=== PATIENT | female | born 1930 | race Caucasian/White ===

== ENCOUNTER 2017-08-07 15:10 | Inpatient (IN) | payer MEDICARE, OTHER ==
[~2017-08-07] VITALS: Ht 137.2 cm; Wt 54.9 kg
[2017-08-07 15:57] LABS: BASOPHILS % (AUTO) 0.7 % (0.0-2.0); EOSINOPHILS # (AUTO) 0.1 K/uL (0.0-0.7); EOSINOPHILS % (AUTO) 2.4 % (0.0-7.0); HEMATOCRIT 36.7 % (31.2-41.9); HEMOGLOBIN 12.4 g/dL (10.9-14.3); LYMPHOCYTES # (AUTO) 1.7 K/uL (20.0-40.0); LYMPHOCYTES % (AUTO) 28.7 % (20.5-51.5); MEAN CORPUSCULAR HEMOGLOBIN 29.8 uug (24.7-32.8); MEAN CORPUSCULAR HGB CONC 34 g/dL (32.3-35.6); MONOCYTES # (AUTO) 0.5 K/uL (2.0-10.0); MONOCYTES % (AUTO) 8.7 % (0.0-11.0); NEUTROPHILS # (AUTO) 3.5 K/uL (1.8-8.9); NEUTROPHILS % (AUTO) 59.5 % (38.5-71.5); PLATELET COUNT (AUTO) 242 K/uL (179-408); RED BLOOD CELL COUNT(AUTO) 4.17 MIL/uL (3.63-4.92); WHITE BLOOD COUNT (AUTO) 5.8 K/uL (3.8-11.8)
[2017-08-07 16:00] LABS: *BILIRUBIN,URIN NEGATIVE (NEGATIVE); *BLOOD, URINE NEGATIVE (NEGATIVE); *COLOR,URINE YELLOW (YELLOW); *KETONES,URINE NEGATIVE (NEGATIVE); *PROTEIN,URINE NEGATIVE (NEGATIVE); *UROBILINOGEN,URINE 0.2 E.U./dl (NORMAL); LEUKOCYTE ESTERASE ,URINE 1+ (NEGATIVE); NITRITE, URINE NEGATIVE (NEGATIVE); PH,URINE 7.5 (5.0-8.0); UGLUCOSE NEGATIVE (NEGATIVE)
[2017-08-07 16:06] LABS: CARBON DIOXIDE 30 mmol/L (21-32); CHLORIDE 104 mmol/L (98-107); CREATININE 0.8 mg/dL (0.6-1.3); GLUCOSE 99 mg/dL (74-106); POTASSIUM 3.8 mmol/L (3.5-5.1); UREA NITROGEN, BLOOD 15 mg/dL (7-18)
[2017-08-07 16:12] LABS: *CLARITY,URINE HAZY (CLEAR)
[2017-08-07 16:13] LABS: ALANINE AMINOTRANSFERASE 22 U/L (14-59); ALKALINE PHOSPHATASE 108 U/L (50-136); ASPARTATE AMINOTRANSFERASE 23 U/L (15-37); BILIRUBIN,DIRECT < 0.1 mg/dL (0.0-0.2); BILIRUBIN,TOTAL 0.2 mg/dL (0.2-1.0); ETHANOL < 3 MG/DL (0-0); TOTAL PROTEIN, SERUM 7.3 g/dL (6.4-8.2)
[2017-08-07 16:14] LABS: BACTERIA,URINE MODERATE /HPF (NONE SEEN); SQUAMOUS EPITHELIAL CELL,UR MODERATE /HPF (NONE SEEN)
[2017-08-07 16:15] LABS: *AMPHETAMINE, URINE NEGATIVE (NEGATIVE); *BARBITURATE, URINE NEGATIVE (NEGATIVE); *CANNABINOID, URINE NEGATIVE (NEGATIVE); *COCCAINE, URINE NEGATIVE (NEGATIVE); *OPIATE, URINE NEGATIVE (NEGATIVE); *PHENCYCLIDINE SCREEN,URINE NEGATIVE (NEGATIVE)
[2017-08-07 16:16] LABS: ACETAMINOPHEN < 2.0 ug/mL (10-30)
[2017-08-07] MEDS ORDERED: LEVE500S9 PO (16:29)
[2017-08-07] MEDS ORDERED: BISA10SU12 RC (16:29)
[2017-08-07] MEDS ORDERED: POTA-88 PO (16:29)
[2017-08-07] MEDS ORDERED: ATOR40TA PO (16:29)
[2017-08-07] MEDS ORDERED: ALBU2.5V13 IH (16:29)
[2017-08-07] MEDS ORDERED: NUTR113P PO (16:29)
[2017-08-07] MEDS ORDERED: MAGN400O6 PO (16:29)
[2017-08-07] MEDS ORDERED: ACET325T53 PO (16:29)
[2017-08-07] MEDS ORDERED: MIRT15TA PO (16:29)
[2017-08-07] MEDS ORDERED: HYDR-4077 PO (16:29)
[2017-08-07] MEDS ORDERED: ASPI-612 PO (16:29)
[2017-08-07] MEDS ORDERED: LACO10SO PO (16:29)
[2017-08-07] MEDS ORDERED: ONDA4TAB11 PO (16:29)
[2017-08-07] MEDS ORDERED: SENN-167 PO (16:29)
[2017-08-07] MEDS ORDERED: MELA3TAB PO (16:29)
[2017-08-07] MEDS ORDERED: CEPHALEXIN MONOHYDRATE 500 MG CAPSULE PO ONE (16:30)
[2017-08-07] MEDS ORDERED: CEPHALEXIN MONOHYDRATE 500 MG CAPSULE ONE (17:14)
[2017-08-07] MEDS ORDERED: OLANZAPINE 5 MG TABLET PO ONE (17:30)
[2017-08-07] MEDS ORDERED: OLANZAPINE 10 MG VIAL IM ONE (17:39)
[2017-08-07] MEDS ORDERED: MAGNESIUM HYDROXIDE 30 ML LIQUID UDC PO PRN (19:45)
[2017-08-07] MEDS ORDERED: LORAZEPAM 0.5 MG TABLET PO PRN (20:00)
[2017-08-08] MEDS ORDERED: Z GUARD REMEDY PASTE 57 GM TUBE TOP PRN (02:15)
[2017-08-08] MEDS: ACETAMINOPHEN 325 MG TABLET PO PRN ×3 (05:24→23:46)
[2017-08-08 06:41] VITALS: BP 125/79
[2017-08-08 07:30] VITALS: BP 135/99
[2017-08-08] MEDS: NYSTATIN CREAM 30 GM TUBE TOP SCH ×2 (09:00→20:07)
[2017-08-08] MEDS: NICOTINE 7 MG/24HR PATCH TD SCH (09:08)
[2017-08-08] MEDS: QUETIAPINE FUMARATE 25 MG TABLET PO SCH ×2 (11:28→17:49)
[2017-08-08] MEDS: DIVALPROEX SPRINKLE 125 MG CAP.SPRINK PO SCH ×3 (11:28→17:49)
[2017-08-08 15:19] VITALS: BP 126/48
[2017-08-08] MEDS ORDERED: BISACODYL 10 MG SUPP.RECT RC PRN (15:45)
[2017-08-08] MEDS ORDERED: NUTRITIONAL SUPPLEMENT 113 GM PO SCH (17:00)
[2017-08-08] MEDS ORDERED: LACOSAMIDE 150 MG/15 ML UDC PO SCH (17:00)
[2017-08-08] MEDS: SULFAMETH/TRIMETH 800/160 MG TABLET PO SCH (20:06)
[2017-08-08] MEDS: ATORVASTATIN 40 MG TABLET PO SCH (20:06)
[2017-08-08] MEDS: MIRTAZAPINE 15 MG TABLET PO SCH (20:06)
[2017-08-08] MEDS: MELATONIN 3 MG TABLET PO SCH (20:07)
[2017-08-08] MEDS: LEVETIRACETAM 500 MG TABLET PO SCH (20:07)
[2017-08-08 20:53] VITALS: BP 128/68
[2017-08-08] MEDS: hydrALAZINE HCL 50 MG TABLET PO SCH (21:38)
[2017-08-09] MEDS: TEMAZEPAM 7.5 MG CAPSULE PO PRN ×2 (00:19→22:59)
[2017-08-09] MEDS: hydrALAZINE HCL 50 MG TABLET PO SCH ×3 (06:57→22:00)
[2017-08-09 07:30] VITALS: BP 136/63
[2017-08-09] MEDS: LACTOSE-FREE FOOD 237 ML LIQUID PO SCH (08:00)
[2017-08-09] MEDS: LEVETIRACETAM 500 MG TABLET PO SCH ×2 (08:40→21:00)
[2017-08-09] MEDS: DIVALPROEX SPRINKLE 125 MG CAP.SPRINK PO SCH ×3 (08:40→16:52)
[2017-08-09] MEDS: SULFAMETH/TRIMETH 800/160 MG TABLET PO SCH ×2 (08:40→21:00)
[2017-08-09] MEDS: QUETIAPINE FUMARATE 25 MG TABLET PO SCH ×2 (08:41→16:52)
[2017-08-09] MEDS: NICOTINE 7 MG/24HR PATCH TD SCH (08:41)
[2017-08-09] MEDS: SENNOSIDES 1 TABLET PO SCH (08:41)
[2017-08-09] MEDS: LACOSAMIDE 50 MG TABLET PO SCH (08:41)
[2017-08-09] MEDS: ASPIRIN 325 MG TABLET PO SCH (08:41)
[2017-08-09] MEDS: NYSTATIN CREAM 30 GM TUBE TOP SCH ×2 (08:42→21:01)
[2017-08-09] MEDS: POTASSIUM CHLORIDE 20 MEQ POWDER PACKET PO SCH (08:52)
[2017-08-09 15:29] VITALS: BP 107/88
[2017-08-09 20:33] VITALS: BP 116/72
[2017-08-09] MEDS: MIRTAZAPINE 15 MG TABLET PO SCH (21:00)
[2017-08-09] MEDS: ATORVASTATIN 40 MG TABLET PO SCH (21:00)
[2017-08-09] MEDS: MELATONIN 3 MG TABLET PO SCH (21:02)
[2017-08-10] MEDS: hydrALAZINE HCL 50 MG TABLET PO SCH ×3 (06:28→21:00)
[2017-08-10 07:30] VITALS: BP 124/55
[2017-08-10] MEDS: LACTOSE-FREE FOOD 237 ML LIQUID PO SCH ×3 (08:00→16:35)
[2017-08-10] MEDS: ASPIRIN 325 MG TABLET PO SCH (08:06)
[2017-08-10] MEDS: SENNOSIDES 1 TABLET PO SCH (08:06)
[2017-08-10] MEDS: DIVALPROEX SPRINKLE 125 MG CAP.SPRINK PO SCH ×3 (08:06→16:35)
[2017-08-10] MEDS: SULFAMETH/TRIMETH 800/160 MG TABLET PO SCH ×2 (08:06→21:00)
[2017-08-10] MEDS: LEVETIRACETAM 500 MG TABLET PO SCH ×2 (08:06→21:00)
[2017-08-10] MEDS: QUETIAPINE FUMARATE 25 MG TABLET PO SCH ×2 (08:06→16:35)
[2017-08-10] MEDS: NICOTINE 7 MG/24HR PATCH TD SCH (08:06)
[2017-08-10] MEDS: LACOSAMIDE 50 MG TABLET PO SCH (08:06)
[2017-08-10] MEDS: POTASSIUM CHLORIDE 20 MEQ POWDER PACKET PO SCH (08:06)
[2017-08-10] MEDS: NYSTATIN CREAM 30 GM TUBE TOP SCH ×2 (08:07→21:00)
[2017-08-10 15:18] VITALS: BP 112/63
[2017-08-10 20:39] VITALS: BP 146/67
[2017-08-10] MEDS: MIRTAZAPINE 15 MG TABLET PO SCH (21:00)
[2017-08-10] MEDS: ATORVASTATIN 40 MG TABLET PO SCH (21:00)
[2017-08-10] MEDS: MELATONIN 3 MG TABLET PO SCH (21:00)
[2017-08-11] MEDS: hydrALAZINE HCL 50 MG TABLET PO SCH ×4 (05:53→21:48)
[2017-08-11 07:30] VITALS: BP 122/58
[2017-08-11] MEDS: LACOSAMIDE 50 MG TABLET PO SCH (09:48)
[2017-08-11] MEDS: NICOTINE 7 MG/24HR PATCH TD SCH (09:50)
[2017-08-11] MEDS: SULFAMETH/TRIMETH 800/160 MG TABLET PO SCH ×2 (09:50→20:22)
[2017-08-11] MEDS: LEVETIRACETAM 500 MG TABLET PO SCH ×2 (09:50→20:22)
[2017-08-11] MEDS: SENNOSIDES 1 TABLET PO SCH (09:50)
[2017-08-11] MEDS: QUETIAPINE FUMARATE 25 MG TABLET PO SCH ×2 (09:50→17:59)
[2017-08-11] MEDS: DIVALPROEX SPRINKLE 125 MG CAP.SPRINK PO SCH ×3 (09:50→17:58)
[2017-08-11] MEDS: POTASSIUM CHLORIDE 20 MEQ POWDER PACKET PO SCH (09:51)
[2017-08-11] MEDS: ASPIRIN 325 MG TABLET PO SCH (09:51)
[2017-08-11] MEDS: NYSTATIN CREAM 30 GM TUBE TOP SCH ×2 (09:52→20:36)
[2017-08-11] MEDS: LACTOSE-FREE FOOD 237 ML LIQUID PO SCH ×2 (09:54→17:00)
[2017-08-11 16:40] VITALS: BP 123/86
[2017-08-11 20:00] VITALS: BP 105/57
[2017-08-11] MEDS: ATORVASTATIN 40 MG TABLET PO SCH (20:22)
[2017-08-11] MEDS: MIRTAZAPINE 15 MG TABLET PO SCH (20:22)
[2017-08-11] MEDS: MELATONIN 3 MG TABLET PO SCH (20:22)
[2017-08-12] MEDS: hydrALAZINE HCL 50 MG TABLET PO SCH ×3 (06:13→22:00)
[2017-08-12 08:00] VITALS: BP 130/44
[2017-08-12] MEDS: LACTOSE-FREE FOOD 237 ML LIQUID PO SCH ×2 (08:00→17:42)
[2017-08-12 08:40] LABS: BASOPHILS % (AUTO) 0.6 % (0.0-2.0); EOSINOPHILS # (AUTO) 0.1 K/uL (0.0-0.7); EOSINOPHILS % (AUTO) 2.7 % (0.0-7.0); HEMATOCRIT 36.9 % (31.2-41.9); HEMOGLOBIN 12.4 g/dL (10.9-14.3); MEAN CORPUSCULAR HEMOGLOBIN 29.6 uug (24.7-32.8); MEAN CORPUSCULAR HGB CONC 34 g/dL (32.3-35.6); MEAN CORPUSCULAR VOLUME 88.2 fL (75.5-95.3); MONOCYTES # (AUTO) 0.4 K/uL (2.0-10.0); MONOCYTES % (AUTO) 8.8 % (0.0-11.0); NEUTROPHILS # (AUTO) 3.2 K/uL (1.8-8.9); NEUTROPHILS % (AUTO) 66.9 % (38.5-71.5); PLATELET COUNT (AUTO) 246 K/uL (179-408); RED BLOOD CELL COUNT(AUTO) 4.18 MIL/uL (3.63-4.92); WHITE BLOOD COUNT (AUTO) 4.7 K/uL (3.8-11.8)
[2017-08-12 08:57] LABS: THYROID STIMULATING HORMONE 3.856 mIU/mL (0.358-3.740)
[2017-08-12] MEDS: NYSTATIN CREAM 30 GM TUBE TOP SCH ×2 (09:00→20:56)
[2017-08-12] MEDS: DIVALPROEX SPRINKLE 125 MG CAP.SPRINK PO SCH ×3 (09:02→17:37)
[2017-08-12] MEDS: ASPIRIN 325 MG TABLET PO SCH (09:02)
[2017-08-12] MEDS: NICOTINE 7 MG/24HR PATCH TD SCH (09:02)
[2017-08-12] MEDS: POTASSIUM CHLORIDE 20 MEQ POWDER PACKET PO SCH (09:02)
[2017-08-12] MEDS: LACOSAMIDE 50 MG TABLET PO SCH (09:03)
[2017-08-12] MEDS: QUETIAPINE FUMARATE 25 MG TABLET PO SCH ×2 (09:03→17:37)
[2017-08-12] MEDS: SULFAMETH/TRIMETH 800/160 MG TABLET PO SCH ×2 (09:03→20:49)
[2017-08-12] MEDS: SENNOSIDES 1 TABLET PO SCH (09:03)
[2017-08-12] MEDS: LEVETIRACETAM 500 MG TABLET PO SCH ×2 (09:03→20:49)
[2017-08-12 09:09] LABS: ALANINE AMINOTRANSFERASE 19 U/L (14-59); ALKALINE PHOSPHATASE 95 U/L (50-136); ASPARTATE AMINOTRANSFERASE 23 U/L (15-37); BILIRUBIN,TOTAL 0.3 mg/dL (0.2-1.0); CARBON DIOXIDE 27 mmol/L (21-32); CHLORIDE 103 mmol/L (98-107); CREATININE 0.8 mg/dL (0.6-1.3); GLUCOSE 87 mg/dL (74-106); MAGNESIUM 2.3 mg/dL (1.8-2.4); PHOSPHOROUS 4.2 mg/dL (2.5-4.9); POTASSIUM 4.4 mmol/L (3.5-5.1); TOTAL PROTEIN, SERUM 6.9 g/dL (6.4-8.2); UREA NITROGEN, BLOOD 24 mg/dL (7-18)
[2017-08-12 16:00] VITALS: BP 120/45
[2017-08-12 20:36] VITALS: BP 117/58
[2017-08-12] MEDS: ATORVASTATIN 40 MG TABLET PO SCH (20:49)
[2017-08-12] MEDS: MIRTAZAPINE 15 MG TABLET PO SCH (20:49)
[2017-08-12] MEDS: MELATONIN 3 MG TABLET PO SCH (20:49)
[2017-08-13] MEDS: hydrALAZINE HCL 50 MG TABLET PO SCH ×2 (06:00→14:00)
[2017-08-13 07:30] VITALS: BP 120/71
[2017-08-13] MEDS: LACTOSE-FREE FOOD 237 ML LIQUID PO SCH ×2 (08:00→17:00)
[2017-08-13] MEDS: DIVALPROEX SPRINKLE 125 MG CAP.SPRINK PO SCH ×3 (09:00→17:14)
[2017-08-13] MEDS: LACOSAMIDE 50 MG TABLET PO SCH (10:04)
[2017-08-13] MEDS: QUETIAPINE FUMARATE 25 MG TABLET PO SCH ×2 (10:04→17:15)
[2017-08-13] MEDS: SULFAMETH/TRIMETH 800/160 MG TABLET PO SCH ×2 (10:04→20:21)
[2017-08-13] MEDS: SENNOSIDES 1 TABLET PO SCH (10:04)
[2017-08-13] MEDS: LEVETIRACETAM 500 MG TABLET PO SCH ×2 (10:04→20:20)
[2017-08-13] MEDS: POTASSIUM CHLORIDE 20 MEQ POWDER PACKET PO SCH (10:05)
[2017-08-13] MEDS: NYSTATIN CREAM 30 GM TUBE TOP SCH ×2 (10:05→20:21)
[2017-08-13] MEDS: ASPIRIN 325 MG TABLET PO SCH (10:05)
[2017-08-13] MEDS: NICOTINE 7 MG/24HR PATCH TD SCH (10:05)
[2017-08-13] MEDS: DOCUSATE SODIUM 100 MG CAPSULE PO SCH ×2 (11:00→20:21)
[2017-08-13 15:08] VITALS: BP 113/57
[2017-08-13 15:12] VITALS: BP 113/57
[2017-08-13] MEDS: ACETAMINOPHEN 325 MG TABLET PO PRN (17:14)
[2017-08-13] MEDS: MELATONIN 3 MG TABLET PO SCH (20:20)
[2017-08-13] MEDS: MIRTAZAPINE 15 MG TABLET PO SCH (20:21)
[2017-08-13] MEDS: ATORVASTATIN 40 MG TABLET PO SCH (20:21)
[2017-08-13 20:59] VITALS: BP 146/90
[2017-08-14] MEDS: MAG HYDROX/AL HYDROX/SIMETH 30 ML LIQUID UDC PO PRN ×2 (00:35→10:21)
[2017-08-14] MEDS: LACTOSE-FREE FOOD 237 ML LIQUID PO SCH ×2 (08:00→17:00)
[2017-08-14 08:15] VITALS: BP 96/39
[2017-08-14] MEDS: SULFAMETH/TRIMETH 800/160 MG TABLET PO SCH (08:49)
[2017-08-14] MEDS: LACOSAMIDE 50 MG TABLET PO SCH (08:58)
[2017-08-14] MEDS: LEVETIRACETAM 500 MG TABLET PO SCH (08:58)
[2017-08-14] MEDS: SENNOSIDES 1 TABLET PO SCH (08:59)
[2017-08-14] MEDS: ASPIRIN 325 MG TABLET PO SCH (08:59)
[2017-08-14] MEDS: DIVALPROEX SPRINKLE 125 MG CAP.SPRINK PO SCH ×3 (08:59→18:11)
[2017-08-14] MEDS: POTASSIUM CHLORIDE 20 MEQ POWDER PACKET PO SCH (08:59)
[2017-08-14] MEDS: DOCUSATE SODIUM 100 MG CAPSULE PO SCH (08:59)
[2017-08-14] MEDS: NYSTATIN CREAM 30 GM TUBE TOP SCH (09:00)
[2017-08-14] MEDS: QUETIAPINE FUMARATE 25 MG TABLET PO SCH ×2 (09:00→18:11)
[2017-08-14] MEDS: NICOTINE 7 MG/24HR PATCH TD SCH (09:04)
[2017-08-14 15:05] VITALS: BP 141/50
== END 2017-08-14 19:35 | DRG 885 ==
LOC: ER 15:10 → GPS 19:32
PROVIDERS: ADMIT Psychiatry & Neurology Psychiatry; ATTEND Internal Medicine
DX: F39 Unspecified mood [affective] disorder (principal); F01.51 Vascular dementia, unspecified severity, with behavioral disturbance; D68.59 Other primary thrombophilia; R13.10 Dysphagia, unspecified; E87.1 Hypo-osmolality and hyponatremia; N39.0 Urinary tract infection, site not specified; W18.30XA Fall on same level, unspecified, initial encounter; E11.9 Type 2 diabetes mellitus without complications; Z91.83 Wandering in diseases classified elsewhere; G40.909 Epilepsy, unspecified, not intractable, without status epilepticus; Z74.09 Other reduced mobility; Z96.643 Presence of artificial hip joint, bilateral; I10 Essential (primary) hypertension; J44.9 Chronic obstructive pulmonary disease, unspecified; Z87.891 Personal history of nicotine dependence; Z79.899 Other long term (current) drug therapy; Z86.73 Personal history of transient ischemic attack (TIA), and cerebral infarction without residual deficits; Y92.238 Other place in hospital as the place of occurrence of the external cause
CPT/HCPCS: 36415; 73521; 80164; 80299; 80307; 83735; 84100; 84443; 85025; A4663; A9150; G0480; G0480-TC; J2358

== ENCOUNTER 2019-02-09 20:13 | Inpatient (IN) | payer MEDICARE, MEDICAID ==
[~2019-02-09] VITALS: Ht 147.3 cm; Wt 41.4 kg
[~2019-02-09 20:13] MED LIST: ACET325T53 PO; ALBU2.5V13 IH; ASPI-612 PO; ATOR40TA PO; BISA10SU12 RC; HYDR-4077 PO; LACO10SO PO; LEVE500S9 PO; MAGN400O6 PO; MELA3TAB PO; MIRT15TA PO; NUTR113P PO; ONDA4TAB11 PO; POTA-88 PO; SENN-168 PO
[2019-02-09] MEDS ORDERED: TEMA15CA5 PO (20:32)
[2019-02-09] MEDS ORDERED: HALO1TAB PO (20:32)
[2019-02-09] MEDS ORDERED: DIVA125C2 PO (20:32)
[2019-02-09] MEDS ORDERED: MAG-55 PO (20:32)
[2019-02-09] MEDS ORDERED: LEVE500T9 PO (20:32)
[2019-02-09] MEDS ORDERED: LORA0.5T48 PO (20:32)
[2019-02-09] MEDS ORDERED: NA P133E RC (20:32)
[2019-02-09] MEDS ORDERED: PANT40TA2 PO (20:32)
[2019-02-09] MEDS ORDERED: SUCR1ORA4 PO (20:32)
[2019-02-09] MEDS ORDERED: RIVA1.5C3 PO (20:32)
[2019-02-09 20:58] LABS: BASOPHILS % (AUTO) 0.6 % (0.0-2.0); EOSINOPHILS # (AUTO) 0.1 K/uL (0.0-0.7); EOSINOPHILS % (AUTO) 1.4 % (0.0-7.0); HEMATOCRIT 38.6 % (31.2-41.9); HEMOGLOBIN 12.7 g/dL (10.9-14.3); LYMPHOCYTES # (AUTO) 1.2 K/uL (20.0-40.0); LYMPHOCYTES % (AUTO) 21.2 % (20.5-51.5); MEAN CORPUSCULAR HEMOGLOBIN 28.2 uug (24.7-32.8); MEAN CORPUSCULAR HGB CONC 33 g/dL (32.3-35.6); MEAN CORPUSCULAR VOLUME 85.4 fL (75.5-95.3); MONOCYTES # (AUTO) 0.5 K/uL (2.0-10.0); MONOCYTES % (AUTO) 9.7 % (0.0-11.0); NEUTROPHILS # (AUTO) 3.8 K/uL (1.8-8.9); NEUTROPHILS % (AUTO) 67.1 % (38.5-71.5); PLATELET COUNT (AUTO) 275 K/uL (179-408); RED BLOOD CELL COUNT(AUTO) 4.53 MIL/uL (3.63-4.92); WHITE BLOOD COUNT (AUTO) 5.6 K/uL (3.8-11.8)
[2019-02-09 21:09] LABS: ETHANOL < 3 MG/DL (0-0)
[2019-02-09 21:11] LABS: CARBON DIOXIDE 28 mmol/L (21-32); CHLORIDE 106 mmol/L (98-107); CREATININE 0.6 mg/dL (0.6-1.3); GLUCOSE 90 mg/dL (74-106); POTASSIUM 3.4 mmol/L (3.5-5.1); UREA NITROGEN, BLOOD 15 mg/dL (7-18)
[2019-02-09 21:24] LABS: ALANINE AMINOTRANSFERASE 18 U/L (14-59); ALKALINE PHOSPHATASE 86 U/L (50-136); ASPARTATE AMINOTRANSFERASE 30 U/L (15-37); BILIRUBIN,DIRECT 0.3 mg/dL (0.0-0.2); BILIRUBIN,TOTAL 1.2 mg/dL (0.2-1.0); TOTAL PROTEIN, SERUM 6.6 g/dL (6.4-8.2)
[2019-02-09 21:25] LABS: ACETAMINOPHEN < 2.0 ug/mL (10-30)
[2019-02-09 21:34] LABS: THYROID STIMULATING HORMONE 4.365 mIU/mL (0.358-3.740)
[2019-02-10] MEDS ORDERED: ACETAMINOPHEN 325 MG TABLET PO PRN ×2 (01:00→11:45)
[2019-02-10] MEDS ORDERED: MAG HYDROX/AL HYDROX/SIMETH 30 ML LIQUID UDC PO PRN (01:00)
[2019-02-10] MEDS ORDERED: MAGNESIUM HYDROXIDE 30 ML LIQUID UDC PO PRN ×2 (01:00→11:45)
[2019-02-10] MEDS ORDERED: TEMAZEPAM 7.5 MG CAPSULE PO PRN (01:00)
[2019-02-10] MEDS ORDERED: CLONAZEPAM 0.5 MG TABLET PO PRN (01:00)
[2019-02-10] MEDS ORDERED: FLEET ENEMA 133 ML BOTTLE RC PRN (11:45)
[2019-02-10] MEDS ORDERED: HALOPERIDOL 1 MG TABLET PO SCH (13:00)
[2019-02-10] MEDS: DIVALPROEX 250 MG TABLET.DR PO SCH ×2 (13:00→17:00)
[2019-02-10] MEDS ORDERED: LACO150T2 PO (13:52)
[2019-02-10] MEDS: HALOPERIDOL LACTATE 10 MG/5 ML ORAL SOLUTION UDC PO SCH ×2 (13:58→17:00)
[2019-02-10] MEDS: LACOSAMIDE 50 MG TABLET PO SCH (14:00)
[2019-02-10] MEDS: SUCRALFATE 1 G/10 ML LIQUID UDC PO SCH (16:30)
[2019-02-10] MEDS: LEVETIRACETAM 500 MG TABLET PO SCH (17:00)
[2019-02-10] MEDS: RIVASTIGMINE TARTRATE 1.5 MG CAPSULE PO SCH (17:00)
[2019-02-10] MEDS: ATORVASTATIN 40 MG TABLET PO SCH (20:30)
[2019-02-10] MEDS ORDERED: LACOSAMIDE 50 MG TABLET PO SCH (21:00)
[2019-02-11] MEDS: PANTOPRAZOLE SODIUM 40 MG TABLET.DR PO SCH (06:54)
[2019-02-11 07:30] VITALS: BP 116/74
[2019-02-11] MEDS: SUCRALFATE 1 G/10 ML LIQUID UDC PO SCH ×2 (07:30→16:30)
[2019-02-11] MEDS: LEVETIRACETAM 500 MG TABLET PO SCH ×2 (09:00→17:00)
[2019-02-11] MEDS: HALOPERIDOL LACTATE 10 MG/5 ML ORAL SOLUTION UDC PO SCH ×3 (09:00→17:00)
[2019-02-11] MEDS: LACOSAMIDE 50 MG TABLET PO SCH (09:00)
[2019-02-11] MEDS: RIVASTIGMINE TARTRATE 1.5 MG CAPSULE PO SCH ×2 (09:00→17:00)
[2019-02-11] MEDS: DIVALPROEX 250 MG TABLET.DR PO SCH ×3 (09:00→17:00)
[2019-02-11 15:48] VITALS: BP 136/64
[2019-02-11] MEDS: ATORVASTATIN 40 MG TABLET PO SCH (20:26)
[2019-02-12] MEDS: PANTOPRAZOLE SODIUM 40 MG TABLET.DR PO SCH (06:09)
[2019-02-12] MEDS: SUCRALFATE 1 G/10 ML LIQUID UDC PO SCH ×2 (07:30→16:30)
[2019-02-12] MEDS: RIVASTIGMINE TARTRATE 1.5 MG CAPSULE PO SCH ×2 (08:21→16:53)
[2019-02-12] MEDS: DIVALPROEX 250 MG TABLET.DR PO SCH ×3 (08:21→16:53)
[2019-02-12] MEDS: HALOPERIDOL LACTATE 10 MG/5 ML ORAL SOLUTION UDC PO SCH ×3 (08:21→16:53)
[2019-02-12] MEDS: LACOSAMIDE 50 MG TABLET PO SCH (08:22)
[2019-02-12] MEDS: LEVETIRACETAM 500 MG TABLET PO SCH ×2 (08:22→16:53)
[2019-02-12 20:28] VITALS: BP 101/48
[2019-02-12] MEDS: ATORVASTATIN 40 MG TABLET PO SCH (20:49)
[2019-02-13] MEDS: PANTOPRAZOLE SODIUM 40 MG TABLET.DR PO SCH (07:00)
[2019-02-13] MEDS: SUCRALFATE 1 G/10 ML LIQUID UDC PO SCH ×2 (07:30→16:06)
[2019-02-13] MEDS: HALOPERIDOL LACTATE 10 MG/5 ML ORAL SOLUTION UDC PO SCH ×3 (08:16→16:07)
[2019-02-13] MEDS: LEVETIRACETAM 500 MG TABLET PO SCH ×2 (08:16→16:07)
[2019-02-13] MEDS: RIVASTIGMINE TARTRATE 1.5 MG CAPSULE PO SCH ×2 (08:16→16:07)
[2019-02-13] MEDS: DIVALPROEX 250 MG TABLET.DR PO SCH ×3 (08:16→16:06)
[2019-02-13] MEDS: LACOSAMIDE 50 MG TABLET PO SCH (08:16)
[2019-02-13 16:00] VITALS: BP 128/64
[2019-02-13 20:00] VITALS: BP 148/58
[2019-02-13] MEDS: ATORVASTATIN 40 MG TABLET PO SCH ×2 (21:00→21:27)
[2019-02-14] MEDS: PANTOPRAZOLE SODIUM 40 MG TABLET.DR PO SCH (06:47)
[2019-02-14 07:30] VITALS: BP 115/41
[2019-02-14] MEDS: SUCRALFATE 1 G/10 ML LIQUID UDC PO SCH ×2 (07:30→16:26)
[2019-02-14] MEDS: DIVALPROEX 250 MG TABLET.DR PO SCH ×3 (08:06→16:26)
[2019-02-14] MEDS: RIVASTIGMINE TARTRATE 1.5 MG CAPSULE PO SCH ×2 (08:06→16:26)
[2019-02-14] MEDS: LACOSAMIDE 50 MG TABLET PO SCH (08:06)
[2019-02-14] MEDS: HALOPERIDOL LACTATE 10 MG/5 ML ORAL SOLUTION UDC PO SCH ×3 (08:06→16:27)
[2019-02-14] MEDS: LEVETIRACETAM 500 MG TABLET PO SCH ×2 (08:06→16:27)
[2019-02-14 15:14] VITALS: BP 110/62
[2019-02-14 20:00] VITALS: BP 106/62
[2019-02-14] MEDS: ATORVASTATIN 40 MG TABLET PO SCH (21:00)
[2019-02-15] MEDS: PANTOPRAZOLE SODIUM 40 MG TABLET.DR PO SCH (07:00)
[2019-02-15] MEDS: SUCRALFATE 1 G/10 ML LIQUID UDC PO SCH ×2 (07:25→16:09)
[2019-02-15 07:30] VITALS: BP 123/75
[2019-02-15] MEDS: LEVETIRACETAM 500 MG TABLET PO SCH ×2 (08:13→16:19)
[2019-02-15] MEDS: DIVALPROEX 250 MG TABLET.DR PO SCH ×3 (08:13→16:09)
[2019-02-15] MEDS: RIVASTIGMINE TARTRATE 1.5 MG CAPSULE PO SCH ×2 (08:13→16:09)
[2019-02-15] MEDS: HALOPERIDOL LACTATE 10 MG/5 ML ORAL SOLUTION UDC PO SCH ×2 (08:13→16:09)
[2019-02-15] MEDS: LACOSAMIDE 50 MG TABLET PO SCH (08:14)
[2019-02-15 15:20] VITALS: BP 90/45
[2019-02-15] MEDS: HALOPERIDOL LACTATE 5 MG/1 ML VIAL IM PRN (16:18)
[2019-02-15 19:43] VITALS: BP 124/67
[2019-02-15] MEDS: ATORVASTATIN 40 MG TABLET PO SCH ×2 (20:41→20:42)
[2019-02-16] MEDS: PANTOPRAZOLE SODIUM 40 MG TABLET.DR PO SCH (06:28)
[2019-02-16] MEDS: SUCRALFATE 1 G/10 ML LIQUID UDC PO SCH ×2 (06:30→16:30)
[2019-02-16] MEDS: RIVASTIGMINE TARTRATE 1.5 MG CAPSULE PO SCH ×2 (09:00→17:00)
[2019-02-16] MEDS: HALOPERIDOL LACTATE 10 MG/5 ML ORAL SOLUTION UDC PO SCH ×2 (09:00→17:00)
[2019-02-16] MEDS: LACOSAMIDE 50 MG TABLET PO SCH (09:00)
[2019-02-16] MEDS: LEVETIRACETAM 500 MG TABLET PO SCH ×2 (09:00→17:00)
[2019-02-16] MEDS: DIVALPROEX 250 MG TABLET.DR PO SCH ×3 (09:00→17:00)
[2019-02-16] MEDS: HALOPERIDOL LACTATE 5 MG/1 ML VIAL IM PRN ×2 (09:51→17:27)
[2019-02-16 15:30] VITALS: BP 124/63
[2019-02-16 20:22] VITALS: BP 113/71
[2019-02-16] MEDS: ATORVASTATIN 40 MG TABLET PO SCH (20:55)
[2019-02-17] MEDS: PANTOPRAZOLE SODIUM 40 MG TABLET.DR PO SCH (07:00)
[2019-02-17 07:30] VITALS: BP 92/41
[2019-02-17] MEDS: SUCRALFATE 1 G/10 ML LIQUID UDC PO SCH ×2 (07:30→16:30)
[2019-02-17] MEDS: RIVASTIGMINE TARTRATE 1.5 MG CAPSULE PO SCH ×2 (09:00→17:00)
[2019-02-17] MEDS: HALOPERIDOL LACTATE 10 MG/5 ML ORAL SOLUTION UDC PO SCH ×2 (09:00→17:00)
[2019-02-17] MEDS: DIVALPROEX 250 MG TABLET.DR PO SCH ×3 (09:00→17:00)
[2019-02-17] MEDS: LACOSAMIDE 50 MG TABLET PO SCH (09:00)
[2019-02-17] MEDS: LEVETIRACETAM 500 MG TABLET PO SCH ×2 (09:00→17:00)
[2019-02-17] MEDS: HALOPERIDOL LACTATE 5 MG/1 ML VIAL IM PRN ×2 (09:54→18:28)
[2019-02-17 16:00] VITALS: BP 106/59
[2019-02-17 20:58] VITALS: BP 96/60
[2019-02-17] MEDS: ATORVASTATIN 40 MG TABLET PO SCH (20:58)
[2019-02-18] MEDS: PANTOPRAZOLE SODIUM 40 MG TABLET.DR PO SCH (06:08)
[2019-02-18 07:30] VITALS: BP 97/72
[2019-02-18] MEDS: SUCRALFATE 1 G/10 ML LIQUID UDC PO SCH ×2 (07:30→17:43)
[2019-02-18] MEDS: LACOSAMIDE 50 MG TABLET PO SCH (09:00)
[2019-02-18] MEDS: DIVALPROEX 250 MG TABLET.DR PO SCH ×2 (09:00→13:00)
[2019-02-18] MEDS: LEVETIRACETAM 500 MG TABLET PO SCH ×2 (09:00→17:44)
[2019-02-18] MEDS: HALOPERIDOL LACTATE 10 MG/5 ML ORAL SOLUTION UDC PO SCH ×2 (09:00→17:41)
[2019-02-18] MEDS: RIVASTIGMINE TARTRATE 1.5 MG CAPSULE PO SCH ×2 (09:00→17:44)
[2019-02-18] MEDS: HALOPERIDOL LACTATE 5 MG/1 ML VIAL IM PRN (10:31)
[2019-02-18 16:00] VITALS: BP 124/65
[2019-02-18] MEDS: VALPROIC ACID 250 MG/5 ML LIQUID UDC PO SCH (18:08)
[2019-02-18 20:00] VITALS: BP 111/66
[2019-02-18] MEDS: ATORVASTATIN 40 MG TABLET PO SCH (21:25)
[2019-02-19] MEDS: SUCRALFATE 1 G/10 ML LIQUID UDC PO SCH ×3 (06:21→07:30)
[2019-02-19] MEDS: PANTOPRAZOLE SODIUM 40 MG TABLET.DR PO SCH (06:26)
[2019-02-19 07:30] VITALS: BP 129/84
[2019-02-19] MEDS: LEVETIRACETAM 500 MG TABLET PO SCH ×2 (09:00→17:00)
[2019-02-19] MEDS: RIVASTIGMINE TARTRATE 1.5 MG CAPSULE PO SCH ×2 (09:00→17:00)
[2019-02-19] MEDS: LACOSAMIDE 50 MG TABLET PO SCH (09:00)
[2019-02-19] MEDS: VALPROIC ACID 250 MG/5 ML LIQUID UDC PO SCH ×3 (09:00→17:00)
[2019-02-19] MEDS: HALOPERIDOL LACTATE 5 MG/1 ML VIAL IM PRN ×2 (10:36→17:59)
[2019-02-19 15:43] VITALS: BP 125/58
[2019-02-19] MEDS: HALOPERIDOL LACTATE 10 MG/5 ML ORAL SOLUTION UDC PO SCH (17:00)
[2019-02-19] MEDS: ATORVASTATIN 40 MG TABLET PO SCH (20:04)
[2019-02-19 21:02] VITALS: BP 112/66
[2019-02-20] MEDS: PANTOPRAZOLE SODIUM 40 MG TABLET.DR PO SCH (06:02)
[2019-02-20] MEDS: SUCRALFATE 1 G/10 ML LIQUID UDC PO SCH ×2 (06:38→16:30)
[2019-02-20 07:30] VITALS: BP 90/50
[2019-02-20] MEDS: VALPROIC ACID 250 MG/5 ML LIQUID UDC PO SCH ×3 (10:43→17:00)
[2019-02-20] MEDS: HALOPERIDOL LACTATE 10 MG/5 ML ORAL SOLUTION UDC PO SCH ×2 (10:44→17:00)
[2019-02-20] MEDS: RIVASTIGMINE TARTRATE 1.5 MG CAPSULE PO SCH ×2 (10:44→17:00)
[2019-02-20] MEDS: LEVETIRACETAM 500 MG TABLET PO SCH ×2 (10:44→17:00)
[2019-02-20] MEDS: LACOSAMIDE 50 MG TABLET PO SCH (10:44)
[2019-02-20] MEDS ORDERED: IV NS 1000 ML 1,000 ML IV ONE (12:45)
[2019-02-20 15:08] VITALS: BP 156/58
[2019-02-20] MEDS: HALOPERIDOL LACTATE 5 MG/1 ML VIAL IM PRN (17:36)
[2019-02-20 20:00] VITALS: BP 102/51
[2019-02-20] MEDS: ATORVASTATIN 40 MG TABLET PO SCH (20:25)
[2019-02-21] MEDS: PANTOPRAZOLE SODIUM 40 MG TABLET.DR PO SCH (06:16)
[2019-02-21 08:30] VITALS: BP 95/41
[2019-02-21] MEDS: HALOPERIDOL LACTATE 10 MG/5 ML ORAL SOLUTION UDC PO SCH ×2 (11:16→16:38)
[2019-02-21] MEDS: LACOSAMIDE 50 MG TABLET PO SCH (11:17)
[2019-02-21] MEDS: RIVASTIGMINE TARTRATE 1.5 MG CAPSULE PO SCH ×2 (11:18→16:38)
[2019-02-21] MEDS: LEVETIRACETAM 500 MG TABLET PO SCH ×2 (11:18→16:38)
[2019-02-21] MEDS: SUCRALFATE 1 G/10 ML LIQUID UDC PO SCH ×2 (11:20→16:39)
[2019-02-21] MEDS: VALPROIC ACID 250 MG/5 ML LIQUID UDC PO SCH ×3 (11:34→18:09)
[2019-02-21] MEDS ORDERED: IV NS 1000 ML 1,000 ML IV ONE (12:45)
[2019-02-21 15:11] VITALS: BP 118/80
[2019-02-21 18:04] LABS: *BILIRUBIN,URIN NEGATIVE (NEGATIVE); *BLOOD, URINE NEGATIVE (NEGATIVE); *COLOR,URINE YELLOW (YELLOW); *KETONES,URINE 1+ (NEGATIVE); LEUKOCYTE ESTERASE ,URINE 1+ (NEGATIVE); NITRITE, URINE NEGATIVE (NEGATIVE); PH,URINE 7.5 (5.0-8.0); UGLUCOSE NEGATIVE (NEGATIVE)
[2019-02-21 18:15] LABS: *CLARITY,URINE TURBID (CLEAR)
[2019-02-21 18:19] LABS: BACTERIA,URINE MANY /HPF (NONE SEEN); SQUAMOUS EPITHELIAL CELL,UR MANY /HPF (NONE SEEN)
[2019-02-21 19:58] VITALS: BP 97/54
[2019-02-21] MEDS: ATORVASTATIN 40 MG TABLET PO SCH (20:00)
[2019-02-22] MEDS: PANTOPRAZOLE SODIUM 40 MG TABLET.DR PO SCH (06:26)
[2019-02-22] MEDS: SUCRALFATE 1 G/10 ML LIQUID UDC PO SCH ×3 (06:46→16:30)
[2019-02-22 07:30] VITALS: BP 112/66
[2019-02-22] MEDS ORDERED: CEFTRIAXONE 1 G VIAL IM ONE ×2 (08:00)
[2019-02-22 08:26] LABS: BASOPHILS % (AUTO) 0.2 % (0.0-2.0); EOSINOPHILS # (AUTO) 0.1 K/uL (0.0-0.7); EOSINOPHILS % (AUTO) 1.4 % (0.0-7.0); HEMATOCRIT 33.3 % (31.2-41.9); HEMOGLOBIN 11.4 g/dL (10.9-14.3); LYMPHOCYTES # (AUTO) 0.9 K/uL (20.0-40.0); LYMPHOCYTES % (AUTO) 15.8 % (20.5-51.5); MEAN CORPUSCULAR HGB CONC 34 g/dL (32.3-35.6); MEAN CORPUSCULAR VOLUME 87.5 fL (75.5-95.3); MONOCYTES # (AUTO) 0.4 K/uL (2.0-10.0); NEUTROPHILS # (AUTO) 4.5 K/uL (1.8-8.9); NEUTROPHILS % (AUTO) 75.6 % (38.5-71.5); PLATELET COUNT (AUTO) 241 K/uL (179-408); WHITE BLOOD COUNT (AUTO) 5.9 K/uL (3.8-11.8)
[2019-02-22 08:37] LABS: CARBON DIOXIDE 28 mmol/L (21-32); CHLORIDE 109 mmol/L (98-107); CREATININE 0.5 mg/dL (0.6-1.3); GLUCOSE 88 mg/dL (74-106); PHOSPHOROUS 3.3 mg/dL (2.5-4.9); POTASSIUM 3.6 mmol/L (3.5-5.1); UREA NITROGEN, BLOOD 13 mg/dL (7-18)
[2019-02-22] MEDS: VALPROIC ACID 250 MG/5 ML LIQUID UDC PO SCH ×3 (08:43→16:40)
[2019-02-22] MEDS: LACOSAMIDE 50 MG TABLET PO SCH (08:43)
[2019-02-22] MEDS: HALOPERIDOL LACTATE 10 MG/5 ML ORAL SOLUTION UDC PO SCH ×2 (08:43→16:40)
[2019-02-22] MEDS: LEVETIRACETAM 500 MG TABLET PO SCH ×2 (08:43→16:40)
[2019-02-22] MEDS: RIVASTIGMINE TARTRATE 1.5 MG CAPSULE PO SCH ×2 (08:43→16:40)
[2019-02-22] MEDS: HALOPERIDOL LACTATE 5 MG/1 ML VIAL IM PRN ×2 (09:13→19:19)
[2019-02-22 16:09] VITALS: BP 124/73
[2019-02-22 20:00] VITALS: BP 122/70
[2019-02-22] MEDS: ATORVASTATIN 40 MG TABLET PO SCH (21:00)
[2019-02-23] MEDS: PANTOPRAZOLE SODIUM 40 MG TABLET.DR PO SCH (06:24)
[2019-02-23] MEDS: SUCRALFATE 1 G/10 ML LIQUID UDC PO SCH ×2 (06:43→17:07)
[2019-02-23 07:30] VITALS: BP 115/61
[2019-02-23] MEDS ORDERED: HALOPERIDOL DECANOATE 50 MG/1 ML AMPUL IM ONE (08:45)
[2019-02-23] MEDS: VALPROIC ACID 250 MG/5 ML LIQUID UDC PO SCH ×3 (10:56→17:07)
[2019-02-23] MEDS: RIVASTIGMINE TARTRATE 1.5 MG CAPSULE PO SCH ×2 (10:57→17:08)
[2019-02-23] MEDS: HALOPERIDOL LACTATE 10 MG/5 ML ORAL SOLUTION UDC PO SCH ×2 (10:57→17:08)
[2019-02-23] MEDS: LACOSAMIDE 50 MG TABLET PO SCH (10:57)
[2019-02-23] MEDS: LEVETIRACETAM 500 MG TABLET PO SCH ×2 (10:58→17:08)
[2019-02-23] MEDS: CEFTRIAXONE 1 G VIAL IM SCH (11:10)
[2019-02-23 16:00] VITALS: BP 115/57
[2019-02-23] MEDS: ATORVASTATIN 40 MG TABLET PO SCH (21:00)
[2019-02-23 21:05] VITALS: BP 114/71
[2019-02-23 21:27] VITALS: BP 114/71
[2019-02-24] MEDS: PANTOPRAZOLE SODIUM 40 MG TABLET.DR PO SCH (06:51)
[2019-02-24 07:30] VITALS: BP 101/79
[2019-02-24] MEDS: SUCRALFATE 1 G/10 ML LIQUID UDC PO SCH ×2 (09:20→17:26)
[2019-02-24] MEDS: RIVASTIGMINE TARTRATE 1.5 MG CAPSULE PO SCH ×2 (09:21→17:26)
[2019-02-24] MEDS: HALOPERIDOL LACTATE 10 MG/5 ML ORAL SOLUTION UDC PO SCH ×3 (09:21→18:36)
[2019-02-24] MEDS: LEVETIRACETAM 500 MG TABLET PO SCH ×2 (09:21→17:26)
[2019-02-24] MEDS: CEFTRIAXONE 1 G VIAL IM SCH (09:21)
[2019-02-24] MEDS: LACOSAMIDE 50 MG TABLET PO SCH (09:22)
[2019-02-24] MEDS: VALPROIC ACID 250 MG/5 ML LIQUID UDC PO SCH ×3 (09:28→17:26)
[2019-02-24 16:05] VITALS: BP 122/73
[2019-02-24] MEDS: HALOPERIDOL LACTATE 5 MG/1 ML VIAL IM PRN (18:50)
[2019-02-24 20:00] VITALS: BP 99/55
[2019-02-24] MEDS: ATORVASTATIN 40 MG TABLET PO SCH (20:51)
[2019-02-25] MEDS: PANTOPRAZOLE SODIUM 40 MG TABLET.DR PO SCH (06:43)
[2019-02-25 07:30] VITALS: BP 126/68
[2019-02-25] MEDS: LEVETIRACETAM 500 MG TABLET PO SCH ×2 (08:51→16:28)
[2019-02-25] MEDS: RIVASTIGMINE TARTRATE 1.5 MG CAPSULE PO SCH ×2 (08:51→16:28)
[2019-02-25] MEDS: LACOSAMIDE 50 MG TABLET PO SCH (08:52)
[2019-02-25] MEDS: HALOPERIDOL LACTATE 10 MG/5 ML ORAL SOLUTION UDC PO SCH ×2 (08:53→16:28)
[2019-02-25] MEDS: VALPROIC ACID 250 MG/5 ML LIQUID UDC PO SCH ×3 (08:54→16:28)
[2019-02-25] MEDS: CEFTRIAXONE 1 G VIAL IM SCH (08:54)
[2019-02-25] MEDS: SUCRALFATE 1 G/10 ML LIQUID UDC PO SCH ×2 (08:54→16:27)
[2019-02-25 14:48] VITALS: BP 150/80
[2019-02-25 19:00] VITALS: BP 121/79
[2019-02-25] MEDS: ATORVASTATIN 40 MG TABLET PO SCH (21:00)
[2019-02-26] MEDS: SUCRALFATE 1 G/10 ML LIQUID UDC PO SCH ×2 (07:00→17:13)
[2019-02-26] MEDS: PANTOPRAZOLE SODIUM 40 MG TABLET.DR PO SCH (07:00)
[2019-02-26 07:10] VITALS: BP 103/53
[2019-02-26] MEDS: HALOPERIDOL LACTATE 10 MG/5 ML ORAL SOLUTION UDC PO SCH ×2 (09:00→17:13)
[2019-02-26] MEDS: LACOSAMIDE 50 MG TABLET PO SCH (09:00)
[2019-02-26] MEDS: VALPROIC ACID 250 MG/5 ML LIQUID UDC PO SCH ×3 (09:00→17:12)
[2019-02-26] MEDS: LEVETIRACETAM 500 MG TABLET PO SCH ×2 (09:00→17:13)
[2019-02-26] MEDS: RIVASTIGMINE TARTRATE 1.5 MG CAPSULE PO SCH ×2 (09:00→17:12)
[2019-02-26] MEDS: CEFTRIAXONE 1 G VIAL IM SCH (09:55)
[2019-02-26 15:17] VITALS: BP 115/61
[2019-02-26 20:05] VITALS: BP 97/57
[2019-02-26] MEDS: ATORVASTATIN 40 MG TABLET PO SCH (21:00)
[2019-02-27] MEDS: PANTOPRAZOLE SODIUM 40 MG TABLET.DR PO SCH (06:52)
[2019-02-27 07:27] VITALS: BP 142/64
[2019-02-27] MEDS: LEVETIRACETAM 500 MG TABLET PO SCH ×2 (08:47→17:05)
[2019-02-27] MEDS: SUCRALFATE 1 G/10 ML LIQUID UDC PO SCH ×2 (08:47→17:04)
[2019-02-27] MEDS: VALPROIC ACID 250 MG/5 ML LIQUID UDC PO SCH ×3 (08:47→17:05)
[2019-02-27] MEDS: RIVASTIGMINE TARTRATE 1.5 MG CAPSULE PO SCH ×2 (08:47→17:05)
[2019-02-27] MEDS: HALOPERIDOL LACTATE 10 MG/5 ML ORAL SOLUTION UDC PO SCH ×2 (08:47→17:05)
[2019-02-27] MEDS: LACOSAMIDE 50 MG TABLET PO SCH (08:47)
[2019-02-27] MEDS: CEFTRIAXONE 1 G VIAL IM SCH (10:34)
[2019-02-27 15:08] VITALS: BP 109/49
[2019-02-27 20:04] VITALS: BP 115/61
[2019-02-27] MEDS: ATORVASTATIN 40 MG TABLET PO SCH (20:58)
[2019-02-28] MEDS: PANTOPRAZOLE SODIUM 40 MG TABLET.DR PO SCH (06:19)
[2019-02-28] MEDS: LEVETIRACETAM 500 MG TABLET PO SCH ×2 (08:01→17:12)
[2019-02-28] MEDS: CEFTRIAXONE 1 G VIAL IM SCH (08:01)
[2019-02-28] MEDS: VALPROIC ACID 250 MG/5 ML LIQUID UDC PO SCH ×3 (08:01→17:00)
[2019-02-28] MEDS: RIVASTIGMINE TARTRATE 1.5 MG CAPSULE PO SCH ×2 (08:01→17:12)
[2019-02-28] MEDS: LACOSAMIDE 50 MG TABLET PO SCH (08:01)
[2019-02-28] MEDS: SUCRALFATE 1 G/10 ML LIQUID UDC PO SCH ×2 (08:01→15:48)
[2019-02-28] MEDS: HALOPERIDOL LACTATE 10 MG/5 ML ORAL SOLUTION UDC PO SCH ×2 (08:01→17:00)
[2019-02-28 09:29] VITALS: BP 126/60
[2019-02-28 10:13] LABS: *BILIRUBIN,URIN NEGATIVE (NEGATIVE); *BLOOD, URINE NEGATIVE (NEGATIVE); *CLARITY,URINE CLEAR (CLEAR); *COLOR,URINE YELLOW (YELLOW); *KETONES,URINE NEGATIVE (NEGATIVE); *UROBILINOGEN,URINE 0.2 E.U./dl (NORMAL); LEUKOCYTE ESTERASE ,URINE NEGATIVE (NEGATIVE); NITRITE, URINE NEGATIVE (NEGATIVE); PH,URINE 5.5 (5.0-8.0); UGLUCOSE NEGATIVE (NEGATIVE)
[2019-02-28 10:33] LABS: BACTERIA,URINE NONE SEEN /HPF (NONE SEEN); RBC,URINE 0-3 /HPF (0-3); SQUAMOUS EPITHELIAL CELL,UR FEW /HPF (NONE SEEN); WBC,URINE 0-3 /HPF (0-3)
[2019-02-28 10:34] LABS: MUCUS,URINE FEW /LPF (0-FEW)
[2019-02-28 15:50] VITALS: BP 130/65
[2019-02-28] MEDS: CLOTRIMAZOLE 1% CREAM 30 GM TUBE TOP SCH (17:12)
[2019-02-28 20:04] VITALS: BP 123/63
[2019-02-28] MEDS: ATORVASTATIN 40 MG TABLET PO SCH (21:00)
[2019-02-28] MEDS: Z GUARD REMEDY PASTE 57 GM TUBE TOP SCH (22:15)
[2019-03-01] MEDS: PANTOPRAZOLE SODIUM 40 MG TABLET.DR PO SCH (06:30)
[2019-03-01] MEDS: SUCRALFATE 1 G/10 ML LIQUID UDC PO SCH ×2 (06:30→16:41)
[2019-03-01 08:00] VITALS: BP 149/71
[2019-03-01] MEDS: VALPROIC ACID 250 MG/5 ML LIQUID UDC PO SCH ×3 (08:48→16:34)
[2019-03-01] MEDS: HALOPERIDOL LACTATE 10 MG/5 ML ORAL SOLUTION UDC PO SCH ×2 (08:49→16:34)
[2019-03-01] MEDS: RIVASTIGMINE TARTRATE 1.5 MG CAPSULE PO SCH ×2 (09:40→16:37)
[2019-03-01] MEDS: LACOSAMIDE 50 MG TABLET PO SCH (09:40)
[2019-03-01] MEDS: LEVETIRACETAM 500 MG TABLET PO SCH ×2 (09:41→16:37)
[2019-03-01] MEDS: Z GUARD REMEDY PASTE 57 GM TUBE TOP SCH (09:46)
[2019-03-01] MEDS: CLOTRIMAZOLE 1% CREAM 30 GM TUBE TOP SCH ×2 (09:46→16:39)
[2019-03-01 10:47] LABS: BASOPHILS % (AUTO) 0.7 % (0.0-2.0); EOSINOPHILS # (AUTO) 0.1 K/uL (0.0-0.7); EOSINOPHILS % (AUTO) 0.9 % (0.0-7.0); HEMATOCRIT 33.6 % (31.2-41.9); HEMOGLOBIN 11.5 g/dL (10.9-14.3); LYMPHOCYTES # (AUTO) 1.1 K/uL (20.0-40.0); LYMPHOCYTES % (AUTO) 17.9 % (20.5-51.5); MEAN CORPUSCULAR HEMOGLOBIN 30.1 uug (24.7-32.8); MEAN CORPUSCULAR HGB CONC 34 g/dL (32.3-35.6); MEAN CORPUSCULAR VOLUME 88.2 fL (75.5-95.3); MONOCYTES # (AUTO) 0.5 K/uL (2.0-10.0); MONOCYTES % (AUTO) 7.4 % (0.0-11.0); NEUTROPHILS # (AUTO) 4.5 K/uL (1.8-8.9); NEUTROPHILS % (AUTO) 73.1 % (38.5-71.5); PLATELET COUNT (AUTO) 270 K/uL (179-408); RED BLOOD CELL COUNT(AUTO) 3.81 MIL/uL (3.63-4.92); WHITE BLOOD COUNT (AUTO) 6.1 K/uL (3.8-11.8)
[2019-03-01 10:56] LABS: CARBON DIOXIDE 28 mmol/L (21-32); CHLORIDE 105 mmol/L (98-107); CREATININE 0.5 mg/dL (0.6-1.3); GLUCOSE 143 mg/dL (74-106); POTASSIUM 3.4 mmol/L (3.5-5.1); UREA NITROGEN, BLOOD 17 mg/dL (7-18)
[2019-03-01 11:13] LABS: ALANINE AMINOTRANSFERASE 7 U/L (14-59); ALKALINE PHOSPHATASE 62 U/L (50-136); ASPARTATE AMINOTRANSFERASE 15 U/L (15-37); BILIRUBIN,TOTAL 0.4 mg/dL (0.2-1.0); MAGNESIUM 2.1 mg/dL (1.8-2.4); PHOSPHOROUS 3.3 mg/dL (2.5-4.9); TOTAL PROTEIN, SERUM 5.7 g/dL (6.4-8.2)
[2019-03-01 15:29] VITALS: BP 106/55
[2019-03-01] MEDS ORDERED: MEGESTROL ACETATE 20 MG TABLET PO SCH (17:00)
[2019-03-02] MEDS ORDERED: VALP250S PO (08:46)
[2019-03-02] MEDS ORDERED: CLOT15CR63 TP (08:46)
[2019-03-02] MEDS ORDERED: CLON0.5T PO (08:50)
[2019-03-02] MEDS ORDERED: HALO2TAB PO (08:51)
[2019-03-02] MEDS ORDERED: MEGE20TA5 PO (08:51)
== END 2019-03-01 19:15 | disposition short-term general hospital (02) | DRG 885 ==
LOC: ER 20:16 → GPS 23:22 → MEDSURG3 02-24 15:59 → GPSOV3 02-24 16:00
PROVIDERS: ADMIT Psychiatry & Neurology Psychiatry; ATTEND Nurse Practitioner Acute Care
DX: F29 Unspecified psychosis not due to a substance or known physiological condition (principal); E43 Unspecified severe protein-calorie malnutrition; G93.41 Metabolic encephalopathy; F03.91 Unspecified dementia, unspecified severity, with behavioral disturbance; Z68.1 Body mass index [BMI] 19.9 or less, adult; N39.0 Urinary tract infection, site not specified; E03.9 Hypothyroidism, unspecified; E11.9 Type 2 diabetes mellitus without complications; Z79.82 Long term (current) use of aspirin; E78.5 Hyperlipidemia, unspecified; G40.909 Epilepsy, unspecified, not intractable, without status epilepticus; K21.9 Gastro-esophageal reflux disease without esophagitis; J44.9 Chronic obstructive pulmonary disease, unspecified; K44.9 Diaphragmatic hernia without obstruction or gangrene; R62.7 Adult failure to thrive; Z79.899 Other long term (current) drug therapy; Z86.73 Personal history of transient ischemic attack (TIA), and cerebral infarction without residual deficits; Z91.14 Patient's other noncompliance with medication regimen; M85.80 Other specified disorders of bone density and structure, unspecified site; R26.2 Difficulty in walking, not elsewhere classified; B96.89 Other specified bacterial agents as the cause of diseases classified elsewhere; Z91.19 Patient's noncompliance with other medical treatment and regimen; I10 Essential (primary) hypertension
CPT/HCPCS: 36415; 70030-TC; 71045; 83605; 83735; 84100; 84443; 85025; 85730; 87086; 93005; A4663; C1758; G0480; G0480-TC; J0696; J1630; J1631; J3490; J7030

== ENCOUNTER 2019-03-01 19:59 | Inpatient (IN) | payer MEDICARE, MEDICAID ==
[~2019-03-01] VITALS: Ht 152.4 cm; Wt 43.1 kg
--- NOTE | 2019-03-01 19:20 | NUR ---
RECEIVED PT ON BED. PT WITH WISDOM CATHETER. PT STABLE AND IN NO ACUTE DISTRESS. WAITING FOR DR ADMITTING ORDERS. SAFETY AND COMFORT PROVIDED. WILL CONTINUE TO MONITOR.
[~2019-03-01 19:59] MED LIST changes: -ALBU2.5V13 IH; -ASPI-612 PO; -BISA10SU12 RC; -HYDR-4077 PO; -LACO10SO PO; +LACO150T2 PO; -LEVE500S9 PO; +LEVE500T9 PO; +MAG-55 PO; -MELA3TAB PO; -MIRT15TA PO; +NA P133E RC; -NUTR113P PO; -ONDA4TAB11 PO; +PANT40TA2 PO; -POTA-88 PO; +RIVA1.5C3 PO; -SENN-168 PO; +SUCR1ORA4 PO
[2019-03-01 20:05] VITALS: BP 124/64
[2019-03-01] MEDS ORDERED: FLEET ENEMA 133 ML BOTTLE RC PRN (20:45)
[2019-03-01] MEDS ORDERED: MAG HYDROX/AL HYDROX/SIMETH 30 ML LIQUID UDC PO PRN ×2 (20:45→22:15)
[2019-03-01] MEDS ORDERED: CLONAZEPAM 0.5 MG TABLET PO PRN (20:45)
[2019-03-01] MEDS ORDERED: ACETAMINOPHEN 325 MG TABLET PO PRN ×3 (20:45→22:15)
[2019-03-01] MEDS ORDERED: MAGNESIUM HYDROXIDE 30 ML LIQUID UDC PO ONE (22:00)
[2019-03-01] MEDS ORDERED: HALOPERIDOL 1 MG TABLET PO SCH (22:00)
[2019-03-01] MEDS ORDERED: RIVASTIGMINE TARTRATE 1.5 MG CAPSULE PO SCH (22:15)
[2019-03-01] MEDS ORDERED: ONDANSETRON 4 MG/2 ML VIAL IV PRN (22:15)
[2019-03-01] MEDS ORDERED: LEVETIRACETAM 500 MG TABLET PO SCH (22:15)
[2019-03-01] MEDS ORDERED: HYDROCODONE/APAP 5-325MG TABLET PO PRN (22:15)
[2019-03-01] MEDS ORDERED: MAGNESIUM HYDROXIDE 30 ML LIQUID UDC PO PRN ×2 (22:15)
[2019-03-01] MEDS ORDERED: Z GUARD REMEDY PASTE 57 GM TUBE TOP PRN (22:15)
[2019-03-01] MEDS ORDERED: FLEET ENEMA 133 ML BOTTLE RC SCH (22:15)
[2019-03-01] MEDS ORDERED: ATORVASTATIN 40 MG TABLET PO SCH (22:15)
[2019-03-01] MEDS ORDERED: ZOLPIDEM 5 MG TABLET PO PRN (22:15)
[2019-03-01] MEDS: ATORVASTATIN 40 MG TABLET PO SCH (22:33)
[2019-03-01] MEDS: LEVETIRACETAM 500 MG TABLET PO SCH (22:33)
[2019-03-01] MEDS: RIVASTIGMINE TARTRATE 1.5 MG CAPSULE PO SCH (22:33)
[2019-03-01] MEDS: Z GUARD REMEDY PASTE 57 GM TUBE TOP SCH (22:33)
[2019-03-02] MEDS ORDERED: HALOPERIDOL 5 MG TABLET ONE ×2 (00:22→00:26)
[2019-03-02] MEDS: IV D5 1/2 NS 1000 ML 1,000 ML IV PRN ×2 (00:35→13:49)
[2019-03-02 05:43] VITALS: BP 125/62
[2019-03-02 06:35] LABS: BASOPHILS % (AUTO) 0.4 % (0.0-2.0); EOSINOPHILS # (AUTO) 0.1 K/uL (0.0-0.7); EOSINOPHILS % (AUTO) 1.3 % (0.0-7.0); HEMATOCRIT 32.7 % (31.2-41.9); HEMOGLOBIN 11.2 g/dL (10.9-14.3); LYMPHOCYTES # (AUTO) 0.9 K/uL (20.0-40.0); LYMPHOCYTES % (AUTO) 16.6 % (20.5-51.5); MEAN CORPUSCULAR HEMOGLOBIN 30.5 uug (24.7-32.8); MEAN CORPUSCULAR HGB CONC 34 g/dL (32.3-35.6); MONOCYTES # (AUTO) 0.5 K/uL (2.0-10.0); MONOCYTES % (AUTO) 9.2 % (0.0-11.0); NEUTROPHILS # (AUTO) 3.9 K/uL (1.8-8.9); NEUTROPHILS % (AUTO) 72.5 % (38.5-71.5); PLATELET COUNT (AUTO) 250 K/uL (179-408); RED BLOOD CELL COUNT(AUTO) 3.67 MIL/uL (3.63-4.92); WHITE BLOOD COUNT (AUTO) 5.4 K/uL (3.8-11.8)
--- NOTE | 2019-03-02 06:37 | NUR ---
PT SLEPT THROUGHOUT THE SHIFT.PT SHOWS NO SIGNS OF ACUTE DISTRESS. IV INTACT. PT TURNED AND REPOSITIONED. PT HALDOL AT 2200H NOT ADMINISTERED BECAUSE PT IS ASLEEP AND THE DOSE OF THE HALDOL WAS 5MG. THE ORDERED DOSE WAS 3MG . PT WAS GIVEN KLONOPIN FOR ANXIETY WHILE WAITING FOR THE HALDOL TO BE AVAILABLE. SAFETY AND COMFORT PROVIDED. PT TOLERATED ALL THE PRESCRIBED MEDICATION. ALL NEEDS ARE MET. WILL ENDORSE ACCORDINGLY TO INCOMING NURSE FOR CONTINUITY OF CARE.
[2019-03-02] MEDS: PANTOPRAZOLE SODIUM 40 MG TABLET.DR PO SCH (06:42)
[2019-03-02 06:50] LABS: CARBON DIOXIDE 33 mmol/L (21-32); CHLORIDE 108 mmol/L (98-107); CHOLESTEROL 97 mg/dL (<200); CREATININE 0.5 mg/dL (0.6-1.3); GLUCOSE 89 mg/dL (74-106); HDL CHOLESTEROL 36 mg/dL (40-60); MAGNESIUM 2.2 mg/dL (1.8-2.4); POTASSIUM 3.3 mmol/L (3.5-5.1); TRIGLYCERIDES 54 MG/DL (30-150); UREA NITROGEN, BLOOD 19 mg/dL (7-18)
[2019-03-02 06:58] LABS: THYROID STIMULATING HORMONE 8.452 mIU/mL (0.358-3.740)
[2019-03-02] MEDS ORDERED: FLEET ENEMA 133 ML BOTTLE RC PRN (06:59)
[2019-03-02] MEDS ORDERED: SUCRALFATE 1 G/10 ML LIQUID UDC GT SCH (07:30)
[2019-03-02] MEDS ORDERED: VALPROIC ACID 250 MG CAPSULE PO SCH (08:00)
[2019-03-02] MEDS ORDERED: VALP250S PO (08:46)
[2019-03-02] MEDS ORDERED: CLOT15CR63 TP (08:46)
[2019-03-02] MEDS ORDERED: CLON0.5T PO (08:50)
[2019-03-02] MEDS ORDERED: MEGE20TA5 PO (08:51)
[2019-03-02] MEDS ORDERED: HALO2TAB PO (08:51)
[2019-03-02] MEDS: RIVASTIGMINE TARTRATE 1.5 MG CAPSULE PO SCH ×2 (08:57→21:00)
[2019-03-02] MEDS: LACOSAMIDE 50 MG TABLET PO SCH (08:57)
[2019-03-02] MEDS: VALPROIC ACID 250 MG/5 ML LIQUID UDC PO SCH ×2 (08:57→12:52)
[2019-03-02] MEDS: MEGESTROL ACETATE 20 MG TABLET PO SCH ×2 (08:57→17:05)
[2019-03-02] MEDS: LEVETIRACETAM 500 MG TABLET PO SCH ×2 (08:58→21:00)
[2019-03-02] MEDS: CLOTRIMAZOLE 1% CREAM 30 GM TUBE TP SCH ×2 (08:58→21:44)
[2019-03-02] MEDS: Z GUARD REMEDY PASTE 57 GM TUBE TOP SCH ×2 (08:58→21:43)
[2019-03-02] MEDS ORDERED: LACOSAMIDE 150 MG/15 ML UDC PO SCH (09:00)
[2019-03-02] MEDS ORDERED: HALOPERIDOL LACTATE 10 MG/5 ML ORAL SOLUTION UDC PO SCH (09:00)
[2019-03-02] MEDS ORDERED: CLOTRIMAZOLE/BETAMET DIPROP CREAM 15 GM TUBE TOP SCH (09:00)
[2019-03-02] MEDS ORDERED: PANTOPRAZOLE SODIUM 40 MG TABLET.DR PO SCH (09:00)
[2019-03-02] MEDS ORDERED: SUCRALFATE 1 G/10 ML LIQUID UDC PO SCH (09:00)
[2019-03-02] MEDS ORDERED: POTASSIUM CHLORIDE 20 MEQ TAB.PRT.SR PO ONE (11:15)
[2019-03-02 11:46] VITALS: BP 92/51
--- NOTE | 2019-03-02 15:46 | NUR ---
Patient awake, oriented to self only bulgarian speaking. No distress noted or pain. Patient appears comfortable. Poor PO intake. Potassium replaced today. POLST signed by Sr.Sam English. Speech therapist did eval today, pureed food thin liquids okay. Davis in place, draining well. IVF infusing right AC. End of shift chart check done, will endorse care to oncoming shift.
[2019-03-02 16:10] VITALS: BP 128/74
[2019-03-02] MEDS ORDERED: HALOPERIDOL 2 MG TABLET PO SCH (17:00)
[2019-03-02] MEDS: SUCRALFATE 1 G/10 ML LIQUID UDC PO SCH (17:05)
[2019-03-02] MEDS: HALOPERIDOL LACTATE 10 MG/5 ML ORAL SOLUTION UDC PO SCH (17:05)
[2019-03-02] MEDS: VALPROIC ACID 250 MG CAPSULE PO SCH (17:16)
--- NOTE | 2019-03-02 19:44 | NUR ---
Patient calm and comfortable with no signs of distress. patient laying in bed with call light in reach.
[2019-03-02 20:00] VITALS: BP 96/48
--- NOTE | 2019-03-02 20:00 | NUR ---
Patient is lethargic, responds to physical stimuli, does not follow command and is too drowsy to take medications orally. IV is running intermittently d/t patient bending her arm. No distress noted.
[2019-03-02] MEDS: ATORVASTATIN 40 MG TABLET PO SCH (21:00)
[2019-03-03 05:21] VITALS: BP 113/57
[2019-03-03 06:27] LABS: CARBON DIOXIDE 27 mmol/L (21-32); CHLORIDE 107 mmol/L (98-107); CREATININE 0.5 mg/dL (0.6-1.3); GLUCOSE 94 mg/dL (74-106); POTASSIUM 3.2 mmol/L (3.5-5.1); UREA NITROGEN, BLOOD 11 mg/dL (7-18)
--- NOTE | 2019-03-03 07:40 | NUR ---
No SOB or acute distress noted. No pain noted. Patient awake, oriented to self only slovak speaking. Patient appears comfortable. Poor PO intake. POLST signed by .Lazarus Davis in place, draining well. IVF infusing right AC. Call light within reach. Will continue plan of care.
[2019-03-03] MEDS: PANTOPRAZOLE SODIUM 40 MG TABLET.DR PO SCH (09:29)
[2019-03-03] MEDS: RIVASTIGMINE TARTRATE 1.5 MG CAPSULE PO SCH ×2 (09:29→20:36)
[2019-03-03] MEDS: MEGESTROL ACETATE 20 MG TABLET PO SCH ×2 (09:29→17:00)
[2019-03-03] MEDS: VALPROIC ACID 250 MG CAPSULE PO SCH ×3 (09:29→17:00)
[2019-03-03] MEDS: SUCRALFATE 1 G/10 ML LIQUID UDC PO SCH ×2 (09:29→16:30)
[2019-03-03] MEDS: LEVETIRACETAM 500 MG TABLET PO SCH ×2 (09:30→20:36)
[2019-03-03] MEDS: HALOPERIDOL LACTATE 10 MG/5 ML ORAL SOLUTION UDC PO SCH ×2 (09:30→17:00)
[2019-03-03] MEDS: LACOSAMIDE 50 MG TABLET PO SCH (09:30)
[2019-03-03] MEDS: IV D5 1/2 NS 1000 ML 1,000 ML IV PRN (10:20)
[2019-03-03 11:23] VITALS: BP 112/65
--- NOTE | 2019-03-03 12:00 | NUR ---
Pt is not medication compliant. pt refuses to take meds PO. Pt spits out what is given to her orally. Pt uncooperative. Pt receiving IVF. Call light within reach. Dr Lazarus English. estefany. No SOB or acute distress noted. Will continue to monitor.
[2019-03-03] MEDS ORDERED: POTASSIUM CHLORIDE 20 MEQ TAB.PRT.SR PO ONE (14:45)
--- NOTE | 2019-03-03 14:50 | NUR ---
LEFT MESSAGE WITH [facility] ERIN Arellano REGARDING PT'S REFUSAL TO TAKE PO MEDS. UNABLE TO GIVE K-DUR AT THIS TIME. AWAITING 'S CALL BACK FOR PERHAPS AN ALTERNATE FORM OF ADMINISTRATION.
[2019-03-03 15:17] VITALS: BP 118/74
--- NOTE | 2019-03-03 18:00 | NUR ---
AWARE OF PT'S REFUSAL TO ANYTHING PO. CHANGED PO K TO IV. PT RESTING IN BED. NO SIGNS OF PAIN, SOB OR ACUTE DISTRESS NOTED. CONSENT FOR PEG ON FILE. WILL GIVE REPORT ACCORDINGLY.
[2019-03-03] MEDS: Z GUARD REMEDY PASTE 57 GM TUBE TOP SCH ×2 (18:17→20:37)
[2019-03-03] MEDS: CLOTRIMAZOLE 1% CREAM 30 GM TUBE TP SCH ×2 (18:18→20:37)
[2019-03-03] MEDS: POTASSIUM CHLORIDE 50 ML IV SCH ×2 (18:35→19:44)
[2019-03-03 20:01] VITALS: BP 153/76
[2019-03-03] MEDS: ATORVASTATIN 40 MG TABLET PO SCH (20:36)
[2019-03-04] MEDS: IV D5 1/2 NS 1000 ML 1,000 ML IV PRN ×2 (02:39→17:12)
--- NOTE | 2019-03-04 03:54 | NUR ---
patient is NPO since 0000 for pending EGD + PEG. continues to be uncooperative with care and med regimen.
[2019-03-04 05:01] VITALS: BP 133/73
[2019-03-04] MEDS: SUCRALFATE 1 G/10 ML LIQUID UDC PO SCH ×2 (06:41→16:30)
[2019-03-04 06:46] LABS: BASOPHILS % (AUTO) 0.3 % (0.0-2.0); EOSINOPHILS # (AUTO) 0.1 K/uL (0.0-0.7); EOSINOPHILS % (AUTO) 1.1 % (0.0-7.0); HEMATOCRIT 35.1 % (31.2-41.9); HEMOGLOBIN 11.9 g/dL (10.9-14.3); LYMPHOCYTES # (AUTO) 0.8 K/uL (20.0-40.0); LYMPHOCYTES % (AUTO) 11.8 % (20.5-51.5); MEAN CORPUSCULAR HEMOGLOBIN 29.8 uug (24.7-32.8); MEAN CORPUSCULAR HGB CONC 34 g/dL (32.3-35.6); MEAN CORPUSCULAR VOLUME 88.1 fL (75.5-95.3); MONOCYTES # (AUTO) 0.7 K/uL (2.0-10.0); NEUTROPHILS # (AUTO) 5.1 K/uL (1.8-8.9); NEUTROPHILS % (AUTO) 75.8 % (38.5-71.5); PLATELET COUNT (AUTO) 274 K/uL (179-408); RED BLOOD CELL COUNT(AUTO) 3.98 MIL/uL (3.63-4.92); WHITE BLOOD COUNT (AUTO) 6.7 K/uL (3.8-11.8)
[2019-03-04 06:55] LABS: CARBON DIOXIDE 25 mmol/L (21-32); CHLORIDE 106 mmol/L (98-107); CREATININE 0.5 mg/dL (0.6-1.3); GLUCOSE 103 mg/dL (74-106); POTASSIUM 3.2 mmol/L (3.5-5.1); UREA NITROGEN, BLOOD 4 mg/dL (7-18)
[2019-03-04 07:19] LABS: MAGNESIUM 1.8 mg/dL (1.8-2.4); PHOSPHOROUS 2.9 mg/dL (2.5-4.9)
[2019-03-04] MEDS: PANTOPRAZOLE SODIUM 40 MG TABLET.DR PO SCH (07:30)
--- NOTE | 2019-03-04 07:40 | NUR ---
RECEIVED PT RESTING IN BED. NO SIGNS OF PAIN, SOB OR ACUTE DISTRESS NOTED AT THIS TIME. PT IS NPO SINCE 0000 FOR POSSIBLE SURGICAL PROCEDURE. PT RECEIVING IVF AT THIS TIME. WILL CONTINUE TO MONITOR. WILL CONTINUE PLAN OF CARE.
[2019-03-04] MEDS: RIVASTIGMINE TARTRATE 1.5 MG CAPSULE PO SCH ×2 (09:00→21:00)
[2019-03-04] MEDS: HALOPERIDOL LACTATE 10 MG/5 ML ORAL SOLUTION UDC PO SCH ×2 (09:00→17:00)
[2019-03-04] MEDS: LEVETIRACETAM 500 MG TABLET PO SCH ×2 (09:00→21:00)
[2019-03-04] MEDS: MEGESTROL ACETATE 20 MG TABLET PO SCH ×2 (09:00→17:00)
[2019-03-04] MEDS: VALPROIC ACID 250 MG CAPSULE PO SCH ×3 (09:00→17:00)
[2019-03-04] MEDS: LACOSAMIDE 50 MG TABLET PO SCH (09:00)
[2019-03-04] MEDS: Z GUARD REMEDY PASTE 57 GM TUBE TOP SCH ×2 (09:31→21:22)
[2019-03-04] MEDS: CLOTRIMAZOLE 1% CREAM 30 GM TUBE TP SCH ×2 (09:31→21:40)
--- NOTE | 2019-03-04 09:31 | NUR ---
PT REFUSES ALL MORNING MEDS. CHARGE NURSE INFORMED. INFORMED.
[2019-03-04 11:54] VITALS: BP 99/53
--- NOTE | 2019-03-04 12:51 | NUR ---
PT IS RESTING COMFORTABLY IN BED. SIDE RAILS UP X2. NO SIGNS OF PAIN, SOB OR ACUTE DISTRESS NOTED. IVF RUNNING. WILL CONTINUE TO MONITOR PATIENT.
[2019-03-04] MEDS: POTASSIUM CHLORIDE 50 ML IV SCH ×4 (13:09→17:48)
--- NOTE | 2019-03-04 14:06 | NUR ---
WOUND CARE CONSULT: PT PRESENTS WITH RASH TO ABDOMINAL FOLD, PRESENT ON ADMISSION. RECOMMENDATIONS MADE FOR SKIN CARE AND PROTECTION. DISCUSSED WITH NURSING STAFF. WILL SEE PRN. CARLISLE IN AGREEMENT WITH PLAN OF CARE. Addendum: 03/04/19 at 1407 by GÉNESIS PHILIP RN Amended: Links added.
[2019-03-04 16:12] VITALS: BP 98/46
[2019-03-04] MEDS: ATORVASTATIN 40 MG TABLET PO SCH (21:00)
[2019-03-05] VITALS (9 sets, daily range): BP systolic 114–149; BP diastolic 50–83
[2019-03-05 05:32] LABS: *BILIRUBIN,URIN NEGATIVE (NEGATIVE); *BLOOD, URINE 2+ (NEGATIVE); *COLOR,URINE YELLOW (YELLOW); *KETONES,URINE NEGATIVE (NEGATIVE); *UROBILINOGEN,URINE 0.2 E.U./dl (NORMAL); LEUKOCYTE ESTERASE ,URINE TRACE (NEGATIVE); NITRITE, URINE NEGATIVE (NEGATIVE); PH,URINE 8.5 (5.0-8.0); UGLUCOSE NEGATIVE (NEGATIVE)
[2019-03-05 05:50] LABS: *CLARITY,URINE HAZY (CLEAR)
--- NOTE | 2019-03-05 05:50 | NUR ---
PATIENT KEPT NPO ORDERED FOR PEG PLACEMENT IN AM. VSS.
[2019-03-05 05:51] LABS: BACTERIA,URINE NONE SEEN /HPF (NONE SEEN); RBC,URINE 50-80 /HPF (0-3); SQUAMOUS EPITHELIAL CELL,UR FEW /HPF (NONE SEEN); YEAST,URINE MODERATE /HPF (NONE SEEN)
[2019-03-05] MEDS: SUCRALFATE 1 G/10 ML LIQUID UDC PO SCH ×2 (06:14→17:09)
[2019-03-05] MEDS: PANTOPRAZOLE SODIUM 40 MG TABLET.DR PO SCH (06:14)
[2019-03-05 06:29] LABS: CARBON DIOXIDE 24 mmol/L (21-32); CHLORIDE 105 mmol/L (98-107); CREATININE 0.4 mg/dL (0.6-1.3); GLUCOSE 110 mg/dL (74-106); POTASSIUM 3.8 mmol/L (3.5-5.1); UREA NITROGEN, BLOOD 4 mg/dL (7-18)
[2019-03-05] MEDS: IV D5 1/2 NS 1000 ML 1,000 ML IV PRN (06:50)
--- NOTE | 2019-03-05 08:54 | NUR ---
Pt. picked up by OR staff for peg placement. pt. is stable and transported with 2 OR staff via bed.
[2019-03-05] MEDS: MEGESTROL ACETATE 20 MG TABLET PO SCH ×2 (09:30→17:10)
[2019-03-05] MEDS: LEVETIRACETAM 500 MG TABLET PO SCH (09:30)
[2019-03-05] MEDS: VALPROIC ACID 250 MG CAPSULE PO SCH ×2 (09:30→13:30)
[2019-03-05] MEDS: LACOSAMIDE 50 MG TABLET PO SCH (09:30)
[2019-03-05] MEDS: Z GUARD REMEDY PASTE 57 GM TUBE TOP SCH ×2 (09:30→21:04)
[2019-03-05] MEDS: RIVASTIGMINE TARTRATE 1.5 MG CAPSULE PO SCH ×2 (09:30→21:03)
[2019-03-05] MEDS: CLOTRIMAZOLE 1% CREAM 30 GM TUBE TP SCH ×2 (09:30→21:04)
[2019-03-05] MEDS: HALOPERIDOL LACTATE 10 MG/5 ML ORAL SOLUTION UDC PO SCH ×2 (09:30→17:10)
[2019-03-05] MEDS ORDERED: LIDOCAINE 2%-EPI 1:100,000 20 ML VIAL IJ ONE (09:40)
[2019-03-05] MEDS ORDERED: IV LACTATED RINGERS SOLUTION 1,000 ML BAG IV ONE (09:40)
[2019-03-05] MEDS ORDERED: IV NORMAL SALINE 1000 ML BAG IV ONE (09:40)
[2019-03-05] MEDS ORDERED: PROPOFOL 200 MG/20 ML BOTTLE IV ONE (09:40)
[2019-03-05] MEDS ORDERED: ONDANSETRON 4 MG/2 ML VIAL ONE (09:47)
--- NOTE | 2019-03-05 10:30 | NUR ---
Pt. returned to Med surg floor via bed with 2 OR staff with peg placement and binder. Pt. is stable.
[2019-03-05] MEDS ORDERED: JEVITY 1.2 1000 ML LIQUID GT PRN (12:00)
[2019-03-05] MEDS: VALPROIC ACID 250 MG/5 ML LIQUID UDC GT SCH (17:09)
--- NOTE | 2019-03-05 18:08 | NUR ---
Pt. resting in bed alert oriented to self and georgian speaking. IV in L forearm 20 gauge, intact patent running D5 1/2 NS at 75 cc p. hour. Pt. removed from 2 L NC because O2 sat is 98% on room air. Peg in place running jevity 1.2 20 mL / HR. Pt. tolerating well no residual. Afternoon meds given via peg. Some meds changed to liquid by pharmacy. Abdominal binder in place. Davis catheter in place. 600 cc of yellow clear urine. Call light within reach. Safety measures in place. Will continue to monitor pt.
[2019-03-05] MEDS: ATORVASTATIN 40 MG TABLET PO SCH (21:03)
[2019-03-05] MEDS: LEVETIRACETAM 500 MG/5 ML LIQUID UDC GT SCH (21:03)
[2019-03-06] MEDS: IV D5 1/2 NS 1000 ML 1,000 ML IV PRN ×2 (01:17→12:31)
[2019-03-06 04:37] VITALS: BP 126/77
[2019-03-06] MEDS: SUCRALFATE 1 G/10 ML LIQUID UDC PO SCH ×2 (06:33→16:19)
--- NOTE | 2019-03-06 07:46 | NUR ---
Pt. resting in bed alert oriented to self and macedonian speaking. IV in L forearm 20 gauge, intact patent running D5 1/2 NS at 75 cc p. hour. Pt. on room air. Peg in place. Abdominal binder in place. Davis catheter in place with clear yellow urine. Call light within reach. Safety measures in place. Will continue to monitor pt.
[2019-03-06] MEDS: RIVASTIGMINE TARTRATE 1.5 MG CAPSULE PO SCH ×2 (08:10→20:06)
[2019-03-06] MEDS: MEGESTROL ACETATE 20 MG TABLET PO SCH ×2 (08:10→16:20)
[2019-03-06] MEDS: LEVETIRACETAM 500 MG/5 ML LIQUID UDC GT SCH ×2 (08:11→20:06)
[2019-03-06] MEDS: LACOSAMIDE 50 MG TABLET PO SCH (08:11)
[2019-03-06] MEDS: VALPROIC ACID 250 MG/5 ML LIQUID UDC GT SCH ×3 (08:11→16:19)
[2019-03-06] MEDS: PANTOPRAZOLE ORAL SUSPENSION 40 MG SUSPDR.PKT GT SCH (08:11)
[2019-03-06] MEDS: CLOTRIMAZOLE 1% CREAM 30 GM TUBE TP SCH ×2 (08:12→20:07)
[2019-03-06] MEDS: HALOPERIDOL LACTATE 10 MG/5 ML ORAL SOLUTION UDC PO SCH ×2 (08:12→16:19)
[2019-03-06] MEDS: Z GUARD REMEDY PASTE 57 GM TUBE TOP SCH ×2 (08:12→20:06)
[2019-03-06 10:57] VITALS: BP 121/72
[2019-03-06 16:21] VITALS: BP 118/55
--- NOTE | 2019-03-06 19:00 | NUR ---
Pt. in bed alert oriented to self. IV in L forearm 20 gauge, intact patent running D5 1/2 NS at 75 cc p. hour. Peg in place running jevity 1.2 30 mL / HR. Pt. tolerating well no residual. Afternoon meds given via peg. Abdominal binder in place. Davis catheter in place draining clear yellow urine. DPOA came to visit pt. during day. Call light within reach. Safety measures in place. Will continue to monitor pt and endorse to PM nurse
--- NOTE | 2019-03-06 19:40 | NUR ---
Sleeping during initial rounds. HOB elevated. No s/s of aspiration. No s/s of respiratory distress. GTF infusing at 30 cc/hour via Enteral pump, tolerated well. IVF infusing well on RFA. No s/s of infiltration noted. F/C intact and patent, draining QS clear yellow urine output. Safety measure and fall precaution maintained. Continue care as planned.
[2019-03-06] MEDS: ATORVASTATIN 40 MG TABLET PO SCH (20:06)
[2019-03-06 20:20] VITALS: BP 105/53
[2019-03-07] MEDS: IV D5 1/2 NS 1000 ML 1,000 ML IV PRN (01:31)
[2019-03-07] MEDS: SUCRALFATE 1 G/10 ML LIQUID UDC PO SCH ×2 (06:24→16:05)
--- NOTE | 2019-03-07 06:26 | NUR ---
Shift End Report: VS stable. Slept good. NO s/s of pain/discomforts presented. Tolerating GT feeding well. No gastric residual obtained. No s/s of aspiration. All needs attended and met. F/C intact and patent with QS amount of urine output. No s/s of hematuria noted. No significant event reported all night. Continue current plan of care.
[2019-03-07 06:53] VITALS: BP 122/68
--- NOTE | 2019-03-07 07:35 | NUR ---
Pt. resting in bed alert oriented to self and portuguese speaking. IV in right forearm 20 gauge, intact patent running D5 1/2 NS at 75 cc p. hour. Pt. on room air. Peg in place. Abdominal binder in place. Davis catheter in place with clear yellow urine Safety measures in place. Will continue to monitor .
[2019-03-07] MEDS: MEGESTROL ACETATE 20 MG TABLET PO SCH ×2 (08:03→16:06)
[2019-03-07] MEDS: VALPROIC ACID 250 MG/5 ML LIQUID UDC GT SCH ×3 (08:03→16:05)
[2019-03-07] MEDS: LEVETIRACETAM 500 MG/5 ML LIQUID UDC GT SCH (08:03)
[2019-03-07] MEDS: Z GUARD REMEDY PASTE 57 GM TUBE TOP SCH (08:04)
[2019-03-07] MEDS: PANTOPRAZOLE ORAL SUSPENSION 40 MG SUSPDR.PKT GT SCH (08:04)
[2019-03-07] MEDS: RIVASTIGMINE TARTRATE 1.5 MG CAPSULE PO SCH (08:04)
[2019-03-07] MEDS: HALOPERIDOL LACTATE 10 MG/5 ML ORAL SOLUTION UDC PO SCH ×2 (08:04→16:05)
[2019-03-07] MEDS: LACOSAMIDE 50 MG TABLET PO SCH (08:04)
[2019-03-07] MEDS: CLOTRIMAZOLE 1% CREAM 30 GM TUBE TP SCH (08:05)
[2019-03-07 11:21] VITALS: BP 119/59
[2019-03-07 15:00] VITALS: BP 140/64
--- NOTE | 2019-03-07 16:55 | NUR ---
dc orders received noted and carried out,dc instruction and rn report given to the [facility] harper per md orders,pt left the facility via ambulances in stable condition with folly catheter and g tube feeding
== END 2019-03-07 17:03 | DRG 640 ==
LOC: MEDSURG3 19:59
PROC: 0DB98ZX Excision of Duodenum, Via Natural or Artificial Opening Endoscopic, Diagnostic (ICD-10-PCS; principal; 2019-03-05)
PROC: 0DH63UZ Insertion of Feeding Device into Stomach, Percutaneous Approach (ICD-10-PCS; 2019-03-05)
DX: R62.7 Adult failure to thrive (principal); E43 Unspecified severe protein-calorie malnutrition; G93.41 Metabolic encephalopathy; F03.91 Unspecified dementia, unspecified severity, with behavioral disturbance; N39.0 Urinary tract infection, site not specified; Z68.1 Body mass index [BMI] 19.9 or less, adult; E11.9 Type 2 diabetes mellitus without complications; J44.9 Chronic obstructive pulmonary disease, unspecified; K21.9 Gastro-esophageal reflux disease without esophagitis; Z86.73 Personal history of transient ischemic attack (TIA), and cerebral infarction without residual deficits; G40.909 Epilepsy, unspecified, not intractable, without status epilepticus; F29 Unspecified psychosis not due to a substance or known physiological condition; Z91.14 Patient's other noncompliance with medication regimen; K29.70 Gastritis, unspecified, without bleeding; K29.80 Duodenitis without bleeding; R13.10 Dysphagia, unspecified; I10 Essential (primary) hypertension; F39 Unspecified mood [affective] disorder; B95.2 Enterococcus as the cause of diseases classified elsewhere
CPT/HCPCS: 36415; 83735; 84100; 84443; 85025; 87077; 87086; A4217; G0378; J2405; J3480; J3490; J7030; J7120